=== PATIENT | female | born 1985 | race Caucasian/White ===

== ENCOUNTER 2018-10-27 07:44 | Emergency (ER) | payer MEDICAID ==
[~2018-10-27] VITALS: Ht 167.6 cm; Wt 79.0 kg
[2018-10-27] MEDS ORDERED: triamcinolone acetonide 40mg/ml inj IM ONE (08:30)
[2018-10-27 08:51] VITALS: BP 116/70
== END 2018-10-27 09:47 | disposition home or self-care (01) ==
LOC: ER 07:44
DX: T78.40XA Allergy, unspecified, initial encounter (principal); Z91.018 Allergy to other foods; Y92.89 Other specified places as the place of occurrence of the external cause
CPT/HCPCS: 96372; 99283; J3301

== ENCOUNTER 2018-10-27 12:04 | Emergency (ER) | payer MEDICAID ==
[~2018-10-27] VITALS: Ht 167.6 cm; Wt 79.5 kg
[2018-10-27 12:19] VITALS: BP 108/76
[2018-10-27] MEDS ORDERED: famotidine 20mg tablet PO ONE (13:15)
[2018-10-27] MEDS ORDERED: diphenhydrAMINE 25mg capsule PO ONE (13:15)
== END 2018-10-27 13:31 | disposition home or self-care (01) ==
LOC: ER 12:04
DX: L50.8 Other urticaria (principal); T78.40XA Allergy, unspecified, initial encounter; Z91.018 Allergy to other foods; Y92.89 Other specified places as the place of occurrence of the external cause
CPT/HCPCS: 99283; Q0163